=== PATIENT | female | born 1970 | race Caucasian/White ===

== ENCOUNTER 2025-05-31 16:01 | Emergency (ER) | payer OTHER, SELFPAY ==
--- OUTSIDE RECORDS SUMMARY | 2023-02-07 03:01 | XMS_ITS | Continuity of Care Document ---
Author Organization [facility] Address [address] [address] [place] [address] Phone Care Team Providers Care Wildlife Management Professor Name Role Phone Katelynn Max CRNA Unavailable Unavailable Allergies, Adverse Reactions, Alerts Substance Reaction Status Criticality No Known Allergies Active No Inform ation Medications Medication Instructions Dosage Effective Dates (start - stop) Status Comments VITAMINS AND MINERALS TABLET Take 1 tablet by mouth daily - No Longer Active Analpram HC 2.5% Apply to affected area as directed three times a day. - No Longer Active Procedures Procedure Date Colonoscopy Flex; W/remov Les- 23 Level Iv-surg Path Gross/micro Advance Directives Directive Yes / No Effective Date File Name No Information Encounters Encounter Description Practice Location Reason(s) For Visit Diagnoses Date Provider Providers Copied on Encounter [facility], [address] [address], [place], [id number], [place] tel:[phone] [place] [facility] No Information 3 Mansoor Pace. [address], [place], [id number] , [place]. tel:[phone] Referring Provider: Faustino Carson MD, [address], [place], [address] . tel:[phone] [facility], [address] [address], [place], [id number], [place] tel:[phone] [facility] GI Symptoms or Concerns (chief complaint) Screening ColonoscopyColorect al polypsBenign neoplasm of ascending colonEncounter for screening for malignant neoplasm of colonBenign neoplasm of ascending colon 3 Alli Harmon. [address], [place], [place], [id number] , [place]. tel: [phone] Erlinda Muñoz MD. tel:[phone] erring Provider: Referral Self, USE FOR SELF REFERRALS. [facility], [address] [address], [place], [place], [id number], [place] tel:[phone] [facility] No Information 3 Alvaro Ty. [address], [place], [place], [address] , [place]. tel: [phone] [facility], [address] [address], [place], [id number], [place] tel:[phone] [facility] No Information 5 Don Conway. [address], [place], [place], [address] , [place]. tel: [phone] [facility], [address] [address], [place], [place], [id number], [place] tel:[phone] [facility] No Information 5 Don Conway. [address], [facility] [address], [facility] [place] [place], [address] , [place]. tel: [phone] Family History Family Member Type Diagnosis Age At Onset Mother Problem (finding) Cancer, lung Mother Problem (finding) Cancer Mother Problem (finding) Cancer, breast Immunizations Vaccine Date Status Comments SARS-COV-2 (COVID-19) vaccin e, mRNA, spike protein, LNP, preservative free, 100 mcg/0.5mL dose or 50 mcg/0.25mL dose administered Note: [facility] bi -directional interface ; Source: Other Registry SARS-COV-2 (COVID-19) vaccin e, mRNA, spike protein, LNP, preservative free, 100 mcg/0.5mL dose or 50 mcg/0.25mL dose administered Note: [facility] bi -directional interface ; Source: Other Registry SARS-COV-2 (COVID-19) vaccin e, mRNA, spike protein, LNP, preservative free, 100 mcg/0.5mL dose or 50 mcg/0.25mL dose administered Note: [facility] bi -directional interface ; Source: Other Registry Influenza, seasonal, injectable administe red Note: [facility] bi- directional interface ; Source: Other Registry Payers Payer name Insurance type Covered libertarian ID Alondra mukherjee(sNikki Garcia [id number] Social History Type Description Quantity Date Captured Comments Sex Female Smoking Status No Information Chief Complaint And Reason For Visit No Information Reason For Referral Reason For Referral No Information History Of Present Illness Encounter Date Complaint History Of Prese nt Illness GI Symptoms or Concerns Functional Status Date Functional Assessmen t No Information Medications Administered Medication Instructions Dosage Effective Dates (start - stop) Status Comments No Drug Therapy Prescribed Instructions Date Instruction Additional Infor mation Colon Polyps Related to Scree alaina Colonoscopy Colon Cancer Prevention Related to Screening Colonoscopy Assessments Type Assessment Date No Information Patient Care Teams Name Effective Dates (start - stop) Status Members No Information
[2025-05-31] VITALS (9 sets, daily range): BP systolic 111–116; BP diastolic 67–78; PULSE 59–67; RESP 14–19; TEMP 36.7; O2SAT 96–98; BMI 26.4
--- NOTE | 2025-05-31 16:17 | ED_ITS ---
HPI - General Adult General Time Seen by Provider: 16:18 Date Seen: 05/31/25 Chief complaint: Syncope/Fainted Stated complaint: Low Blood Pressure Time Seen by Provider: 05/31/25 16:12 Source: patient and RN notes reviewed Mode of arrival: ambulatory Limitations: no limitations History of Present Illness HPI narrative: This 54-year-old female is ambulatory into the ER accompanied by her after a syncopal episode. Letty was in [place] to watch baseball. They had eaten lunch before, she had ate and drank today, no alcohol use, rarely drinks any alcohol. They went to stand for the [employer] an thumb, she started to feel lightheaded and dizzy, felt like she was going to pass out and sat down, felt really clammy. Her went to get her some water, when he came back with a water, he states she was completely out, her eyes were open but she was completely out. She was presumably still breathing, he states her lips looked white. When she came to she complained of her vision being abnormal but does not remember that now. She is back to baseline. A EMT did check her out, at 2:18 p.m. her blood pressure was 103/67, pulse 61, O2 sats 98%. At 2:23 p.m. her blood pressure was 90/59, pulse 60, O2 sats 98%. At 2:30 a.m. her blood pressure was 100/66, pulse 65, blood sugar 103. At 2:37 p.m. her blood pressure was 93/64, pulse 64, O2 sats 99% on room air. It is definitely warm outside but it sounds as if she had adequate food and drink today. There is a strong family history of passing out, she last had this happen when she got couple decades ago. She has no symptoms such as irregular heartbeat, palpitations, chest pain, shortness of breath. She has not been sick with anything, no travel. She had no pain anywhere. The EMT did recommend that she get checked out on her way home, she lives in [place]. Besides family history of fainting, she is not aware of any cardiac issues, no blood clots. She herself is on a pill for menopause but otherwise denies any chronic medical issues, no surgeries. She does not smoke. Related Data Allergies Allergy/AdvReac Type Severity Reaction Status Date / Time No Known Drug Allergies Allergy Verified 05/31/25 16:06 Review of Systems Status of ROS: Reports: 6 or more systems reviewed and unremarkable except as noted in History and below [facility] Social History service: No Exam Const: Vital Signs, click to edit/add: Vital Signs - 24 hr 05/31/25 16:07 05/31/25 16:33 05/31/25 16:45 Temperature 98.1 F Pulse Rate 65 66 Pulse Rate [Pulse Oximeter] 67 Respiratory Rate 18 16 14 Blood Pressure Blood Pressure [Ri ght Upper Arm] 116/72 Pulse Oximetry 98 98 97 Oxygen Delivery Me thod Room Air 05/31/25 16:50 05/31/25 17:00 05/31/25 17:06 Temperature Pulse Rate 65 66 Pulse Rate [Pulse Oximeter] Respiratory Rate 14 14 Blood Pressure 116/78 Blood Pressure [Ri ght Upper Arm] Pulse Oximetry 97 96 98 Oxygen Delivery Me thod 05/31/25 17:15 Temperature Pulse Rate 62 Pulse Rate [Pulse Oximeter] Respiratory Rate 14 Blood Pressure Blood Pressure [Ri ght Upper Arm] Pulse Oximetry 96 Oxygen Delivery Me thod This 54-year-old female is alert, interactive, no apparent distress. She is sitting up in the bed in exam room 2, alert, interactive. Pupils equal round reactive, sclera clear, extraocular muscles intact, normal vision by confrontation. Symmetrical facial function, speech is normal. Neck is supple, no jugular venous distension noted, no adenopathy, no thyromegaly masses nodules. Lungs are clear, good air entry, no wheezing or crackles, no tachypnea. CV regular rate and rhythm, no murmur, normal S1-S2, no S3-S4. Abdomen is soft, nontender, nondistended, no organomegaly, no rebound or guarding, no masses. She has no lower extremity edema, no calf tenderness. Skin is tanned but no rash noted. She is not diaphoretic. Neuro he is grossly normal, no evidence of any gross deficit between upper extremity and lower extremity strength. Patient was ambulatory into the ED of her own accord. Documenting provider has reviewed patient's vital signs: yes Course Course ED Course: Have discussed with them the differential for syncope including stroke which I have extremely low suspicion for her, highly doubt that this would be telesales representative of her issue. There certainly can be fainting or vasovagal syncope. Will also consider cardiac etiology, she will be on cardiac monitoring to rule out arrhythmia. We have discussed that if her D-dimer comes back elevated, will proceed with looking at thromboembolic disease such as pulmonary emboli. Look at full complement of labs including troponin. Doubt this is is chemic in nature but will look at an EKG and check labs with the troponin. She will let us know if she has any further symptoms or changes in her status while here. Reevaluation(s) Time of Reevaluation #1: 18:12 Reevaluation #1: We have reviewed that her labs are extremely reassuring, D-dimer was normal, troponin was normal. She has had no evidence of arrhythmia here. Her blood pressure really is not running that high here. The paramedics getting a blood pressure of 90/59, 100/66, certainly could go with some vasovagal syncope. They are thinking that this was more heat related. We did discuss consideration for monitoring with a Zio patch. They would like to discharge, they understand if she starts having further episodes that further workup really needs to be considered and does include arrhythmias. She has had no symptoms such as chest pain. With the heat, do think that this certainly could have been related to vasovagal syncope, heat related. Vital Signs Vital signs: Initial Vital Signs Temperature 98.1 F 05/31/25 16:07 Temperature Source Temporal Artery Scan 05/31/25 16:07 Pulse Rate 67 05/31/25 16:07 Respiratory Rate 18 05/31/25 16:07 Blood Pressure 116/72 05/31/25 16:07 Blood Pressure Mean 86 05/31/25 16:07 Pulse Oximetry 98 05/31/25 16:07 Oxygen Delivery Method Room Air 05/31/25 16:07 Vital Signs Temperature 98.1 F 05/31/25 16:07 Pulse Rate 67 05/31/25 16:07 Respiratory Rate 18 05/31/25 16:07 Blood Pressure 116/72 05/31/25 16:07 Pulse Oximetry 98 05/31/25 16:07 Oxygen Delivery Method Room Air 05/31/25 16:07 Temperature 98.1 F 05/31/25 16:07 Pulse Rate 62 05/31/25 17:15 Respiratory Rate 14 05/31/25 17:15 Blood Pressure 116/78 05/31/25 17:06 Pulse Oximetry 96 05/31/25 17:15 Oxygen Delivery Method Room Air 05/31/25 16:07 Medications Administered Medications: Generic Name Dose Route Start Last Admin Trade Name Solis PRN Reason Stop Dose Admin Sodium Chloride 1,000 mls @ 500 mls/hr 05/31/25 16:37 05/31/25 17:00 0.9 % Sodium Chloride 1000 Ml IV 05/31/25 18:36 500 mls/hr .Q2H ANI Administration Medical Decision Making Lab Data Labs: Lab Results 05/31/25 05/31/25 Range/Units 16:33 16:50 WBC 8.30 (4.50-11.00) K/uL RBC 4.06 (4.00-5.20) m/uL Hgb 12.5 (12.0-16.0) gm/dL Hct 37.5 (33.0-51.0) % MCV 92 (80-100) fL MCH 31 (26-34) pg MCHC 33 (32-36) gm/dL RDW Coeff of Lesley 12.1 (11.5-15.5) % Plt Count 261 (140-440) K/uL Neut % (Auto) 80.7 H (42.0-72.0) % Lymph % (Auto) 12.8 L (20-44) % [place] % (Auto) 4.9 (0.0-11.0) % Eos % (Auto) 1.0 (0.0-7.0) % Baso % (Auto) 0.5 (0.0-3.0) % Neut # (Auto) 6.70 (1.7-7.0) K/uL Lymph # (Auto) 1.10 (0.90-2.90) K/uL [place] # (Auto) 0.40 (0.00-0.90) K/UL Eos # (Auto) 0.08 (0.00-0.50) K/uL Baso # (Auto) 0.04 (0.00-0.30) K/uL Abs Immat Gran (auto) 0.01 (0.00-0.30) K/uL Imm/Tot Granulo (auto) 0.1 % D-Dimer Quant (PE/DVT) < 0.27 (0.00-0.50) ug/ml VBG pH 7.378 (7.32-7.43) VBG pCO2 44 (40-50) mmHG VBG pO2 < 30.1 (25-47) mmHG VBG HCO3 26 (21-28) mmol/L Sodium 136 (135-149) mmol/L Potassium 3.9 (3.6-5.1) mmol/L Chloride 106 (96-114) mmol/L Carbon Dioxide 25 (20-32) mmol/L Anion Gap 5 L (7-15) mEq/L BUN 20 (7-30) mg/dL Creatinine 1.1 (0.5-1.5) mg/dL Estimated Creat Clear 50.49 Estimated GFR 60 ml/min Glucose 100 (60-115) mg/dL Lactate 1.2 (0.5-1.9) mmol/L Calcium 8.8 (8.4-10.6) mg/dL Total Bilirubin 0.4 (0.1-1.5) mg/dL AST 27 (12-35) U/L ALT 18 (4-35) U/L Alkaline Phosphatase 51 (40-150) U/L Troponin I < 0.01 (0.01-0.04) ng/mL NT-Pro-B Natriuret Pep 138 (See Note) pg/mL Total Protein 7.2 (6.0-8.3) g/dL Albumin 4.4 (3.3-5.0) g/dL ECG Data Attestation: I personally reviewed and interpreted this ECG as follows: (Normal sinus rhythm, 63 beats per minute. No evidence of any ischemia or infarct.) Prior ECG tracings: not available for review Discharge Plan Discharge Clinical Impression: Vasovagal syncope Patient Disposition: Home, Self-Care Condition: Stable Instructions: Syncope (ED) Additional Instructions: It is very important for you to stay hydrated in the heat, maybe avoid excessive heat especially for the remainder of the day. If you are having further issues or episodes in the future, you absolutely need further evaluation and further workup. I definitely would consider having you do a ZIO patch which is outpatient cardiac monitoring. I request that you return to the ER if you have further episodes of syncope. Otherwise, do recommend that you follow-up with a primary care provider within the next week or so for recheck from this ED visit. Activity Level: Activity as Tolerated Follow Up/Referrals: Provider,Not a Local [Primary Care Provider, Family Practice] Stand Alone Forms: [employer] Info Instructions
--- NOTE | 2025-05-31 16:33 | CRLHL7_ITS ---
For Patients: As a result of the Century Cures Act, medical imaging exams and procedure reports are released immediately into your electronic medical record. You may view this report before your referring provider. If you have questions, please contact your health care provider. INDICATION: Syncope. TECHNIQUE: Chest 1 view. COMPARISON: None. FINDINGS: Cardiovascular and mediastinum: Heart size and vasculature are normal in caliber and appearance. Lungs and pleural spaces: Lungs are clear. No pleural effusion, or pneumothorax. Bones and soft tissues: Unremarkable for age. IMPRESSION: No evidence of an acute pulmonary process. Dictated by Derek Booker MD @ 05/31/2025 6:48:54 PM (Electronically Signed)
--- OUTSIDE RECORDS SUMMARY | 2025-05-31 16:49 | XMS_ITS | Patient Health Record ---
Author Organization [facility] Address [address] [place] [address] Care Team Providers Care Analytics Lead Name Role Phone None, None Primary Care Provider VIRGILIO Dominique Unavailable [phone] Reason For Referral No Information Medications Medication SIG (Take, Route, Frequency, Duration) Notes Start Date End Date Status Cortisporin 3.5-31550-9 Solution 4 drops into affected ear Otic At bedtime; Duration: 07 days 12/31/2015 Active Reclipsen 0.15-30 MG-MCG Tablet 1 tablet Orally Once a day Active Social History Tobacco Use: Social History Observation Description Date Details (start date - stop date) Never Smoker NA - NA Social History : Social Info Question Answer Notes How often do you consume alcohol? Answer: less than 6 per week Recreational drug use Social Info Question Answer Notes Did you ever use recreational drugs? 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 Problems Problem Type SNOMED Code ICD Code Onset Dates Problem Status W/U Status Risk Notes Problem Impacted cerumen (25589665) Impacted cerumen, bilateral (H61.23) Active confirmed Problem Pain of ear (finding) (978663703) Otalgia, unspecified ear (H92.09) Active confirmed Problem Otitis externa of left ear (580533351004 9109) External otitis of left ear (H60.92) Active confirmed Plan Of Treatment No Information Insurance Providers Payer Name Payer Address Payer Phone Subscriber Number Group Number Insured Name Patient Relationship to Insured Coverage Start Date Coverage End Date BLUE CROSS OUT OF [facility] [address] [address] [place], [place] [id number] Letty Rosa Self - patient is the insured
--- OUTSIDE RECORDS SUMMARY | 2025-05-31 16:49 | XMS_ITS | Clinical Summary ---
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 Gender Identity Not on file Sexual Orientation Not on file Last Filed Vital Signs Vital Sign Reading Time Taken Comments Blood Pressure 130/83 06/27/2022 2:10 PM CDT Pulse 72 06/27/2022 2:30 PM CDT Temperature 36.7 C (98 F) 06/27/2022 12:57 PM CDT Respiratory Rate 15 06/27/2022 2:10 PM CDT Oxygen Saturation 100% 06/27/2022 12:57 PM CDT Inhaled Oxygen Concentration - - Weight 61.2 kg (135 lb) 06/27/2022 12:55 PM CDT Height 162.6 cm (5' 4) 06/27/2022 12:55 PM CDT Body Mass Index 23.17 06/27/2022 12:55 PM CDT Plan of Treatment Health Maintenance Due Date Last Done Comments ADVANCE CARE PLANNING 1970 ANNUAL REVIEW OF HM ORDERS 1970 CT COLONOGRAPHY 1970 FIT 1970 FLEX SIG 1970 sDNA (Cologuard) 1970 YEARLY PREVENTIVE VISIT 1973 COLONOSCOPY 1980 COLORECTAL CANCER SCREENING 1980 HIV SCREENING 1985 HEPATITIS C SCREENING 1988 HEPATITIS B VACCINE (1 of 3 - 19+ 3-dose series) 1989 PAP 1991 DTAP/TDAP/TD VACCINE (1 - Tdap) 1995 LIPID 2010 PNEUMOCOCCAL VACCINE 50+ YEARS (1 of 1 - PCV) 2020 ZOSTER VACCINE (1 of 2) 2020 COVID-19 VACCINE (4 - season) 2024 01/06/2022, 04/20/2021, 03/23/2021 PHQ-2 (once per calendar year) 2024 DIABETES SCREENING 06/27/2025 06/27/2022 INFLUENZA VACCINE (#1) 2025 08/30/2011 MAMMO SCREENING 08/08/2026 08/08/2024, 06/20, 06/28/2023, Additional history exists HPV VACCINE Aged Out No longer eligi ble based on patient's age to complete this topic MENINGITIS VACCINE Aged Out No longer eligible based on patient's age to complete this topic Procedures Procedure Name Priority Date/Time Associated Diagnosis Comments MA SCREENING BILATERAL W/ ASCENCION Routine 08/08/2024 9:10 AM CDT Visit for screening mammogram BASIC METABOLIC PANEL STAT 06/27/2022 1:05 PM CDT from Last 3 Months or Most Recently Relevant to Health Maintenance Results * MA Screen Bilateral w/Ascencion (08/08/2024 9:10 AM CDT) Anatomical Region Laterality Modality Breast Bilateral Mammography Impressions 08/08/2024 12:21 PM CDT IMPRESSION: ACR BI-RADS Category 1: Negative BREAST CANCER SCREENING RECOMMENDATION: Routine yearly mammography beginning at age 40 or as discussed with your provider. The results and recommendations of this examination will be communicated to the patient. Lexi Nieves MD Narrative 08/08/2024 12:21 PM CDT BILATERAL FULL FIELD DIGITAL SCREENING MAMMOGRAM WITH TOMOSYNTHESIS Performed on: 08/08/24 Compared to: 07/10/2023, 06/28/2023, and 06/07/2020 Technique: This study was evaluated with the assistance of Computer-Aided Detection. Breast Tomosynthesis was used in interpretation. Findings: The breasts are heterogeneously dense, which may obscure small masses. There is no radiographic evidence of malignancy. Erlinda Muñoz MD [facility] MAMMOGRAPHY ORDERABLES Final Result * (ABNORMAL) Basic metabolic panel (06/27/2022 1:05 PM CDT) Sodium 136 133 - 144 mmol/L 06/27/2022 1:34 PM CDT LABORATORY Potassium 3.6 3.4 - 5.3 mmol/L 06/27/2022 1:34 PM CDT LABORATORY Chloride 105 94 - 109 mmol/L 06/27/2022 1:34 PM CDT LABORATORY Carbon Dioxide (CO2) 24 20 - 32 mmol/L 06/27/2022 1:34 PM CDT LABORATORY Anion Gap 7 3 - 14 mmol/L 06/27/2022 1:34 PM CDT LABORATORY Urea Nitrogen 12 7 - 30 mg/dL 06/27/2022 1:34 PM CDT LABORATORY Creatinine 0.86 0.52 - 1.04 mg/dL 06/27/2022 1:34 PM CDT LABORATORY Calcium 8.6 8.5 - 10.1 mg/dL 06/27/2022 1:34 PM T LABORATORY Glucose 107(H) 70 - 99 mg/dL 06/27/2022 1:34 PM CDT LABORATORY GFR Estimate 81 >60 mL/min/1.7 3m2 06/27/2022 1:34 PM CDT LABORATORY Comment:Effective October 202020 eGFRcr in adults is calculated using the 2020 CKD-EPI creatinine equation which includes age and gender (Art Installer et al., NEJ, DOI: 10.1056/JFTSzt5892206) Blood STRUCTURE OF LEFT UPPER LIMB / Unknown Venipuncture / Unknown 06/27/2022 1:05 PM CDT 06/27/2022 1:13 PM CDT Elliott Michaud MD LAB - BLOOD ORDERABLES Fin al Result LABORATORY [facility] [address], [address] [place] [id number], [facility] [phone] from Last 3 Months or Most Recently Relevant to Health Maintenance Insurance [employer] Care Teams [employer]oples[employer] Hcm Consultant Relationship Specialty Start Date End Date Erlinda Muñoz MD [address] [place] [address] PCP - General behavioral geneticist 01/03/12
[2025-05-31 17:01] LABS: HCO3 VBG 26 mmol/L (21-28); Lactate* 1.2 mmol/L (0.5-1.9); PCO2 VBG 44 mmHG (40-50); PO2 VBG < 30.1 mmHG (25-47); pH VBG 7.378 (7.32-7.43)
[2025-05-31 17:06] LABS: Hematocrit 37.5 % (33.0-51.0); Hemoglobin* 12.5 gm/dL (12.0-16.0); Immature Granulocytes Abs Auto 0.01 K/uL (0.00-0.30); Immature Granulocytes Pct Auto 0.1 %; Mean Corpuscular HGB Conc 33 gm/dL (32-36); Mean Corpuscular Hemoglobin 31 pg (26-34); Mean Corpuscular Volume 92 fL (80-100); RDW Coefficient of Variation % 12.1 % (11.5-15.5); Red Blood Count 4.06 m/uL (4.00-5.20); White Blood Count* 8.30 K/uL (4.50-11.00)
[2025-05-31 17:08] LABS: Lymphocytes Absolute Auto 1.10 K/uL (0.90-2.90); Slide Review Reflex No
[2025-05-31 17:19] LABS: Albumin* 4.4 g/dL (3.3-5.0); Chloride* 106 mmol/L (96-114)
[2025-05-31 17:20] LABS: Potassium* 3.9 mmol/L (3.6-5.1); Sodium* 136 mmol/L (135-149)
[2025-05-31 17:22] LABS: Alanine Aminotransferase* 18 U/L (4-35); Anion Gap 5 mEq/L (7-15); Aspartate Amino Transferase* 27 U/L (12-35); Blood Urea Nitrogen* 20 mg/dL (7-30); Carbon Dioxide* 25 mmol/L (20-32); Creatinine* 1.1 mg/dL (0.5-1.5); Est. Creatinine Clearance* 50.49; Estimated Glomerular Filt Rate 60 ml/min
[2025-05-31 17:23] LABS: Alkaline Phosphatase* 51 U/L (40-150); Bilirubin Total* 0.4 mg/dL (0.1-1.5); Calcium* 8.8 mg/dL (8.4-10.6); Glucose* 100 mg/dL (60-115); Total Protein* 7.2 g/dL (6.0-8.3)
[2025-05-31 17:31] LABS: D Dimer Quantitative* < 0.27 ug/ml (0.00-0.50)
[2025-05-31 17:34] LABS: NT Pro B Type NatriureticPept* 138 pg/mL (See Note)
== END 2025-05-31 18:35 | disposition home or self-care (01) ==
PROVIDERS: Emergency Provider Family Medicine
DX: R55 Syncope and collapse (principal)
CPT/HCPCS: 36415; 71045; 80053; 82803; 83605; 83880; 84484; 85025; 85379; 93005; 94761; 99284; J7030